=== PATIENT | female | born 1960 | race African-American/Black ===

== ENCOUNTER 2016-07-23 16:47 | Inpatient (IN) | payer MEDICARE, MEDICAID ==
[~2016-07-23] VITALS: Ht 170.2 cm; Wt 58.3 kg
[~2016-07-23 16:47] MED LIST: ADV250 IH; ALBU8HFA4 IH; ALEN70TA48 PO; AMLO-512 PO; RISP2 PO
[2016-07-23] MEDS ORDERED: LORazepam 2 MG/ML VIAL IM ONE (18:45)
[2016-07-23] MEDS ORDERED: HALOPERIDOL LACTATE 5 MG/ML VIAL IM ONE (18:45)
[2016-07-23] MEDS ORDERED: DiphenhydrAMINE HCL 50 MG/ML VIAL IM ONE (18:45)
[2016-07-23 18:55] VITALS: BP 137/99
[2016-07-23] MEDS ORDERED: PNEUMOCOCCAL VACCINE POLYVALENT 0.5 ML VIAL [PPSV23] IM ONE (19:15)
[2016-07-23 19:27] VITALS: BP 112/75
[2016-07-23] MEDS: FLUTICASONE/SALMETEROL 250 MCG-50 MCG/INH DISKUS INHALER [28] IH SCH (21:00)
[2016-07-24] MEDS: LORazepam 2 MG TABLET PO PRN ×4 (04:09→19:29)
[2016-07-24] MEDS: HALOPERIDOL 5 MG TABLET PO PRN ×4 (04:09→20:18)
[2016-07-24] MEDS: ALBUTEROL SULFATE HFA 90 MCG/PUFF 8 GM INHALER IH PRN (04:25)
[2016-07-24 06:54] VITALS: BP 130/86
[2016-07-24 08:14] VITALS: BP 90/52
[2016-07-24 08:30] LABS: BASOPHILS # (AUTO) 0.05 K/uL (0.00-0.20); BASOPHILS % (AUTO) 0.6 % (0.0-2.0); EOSINOPHILS # (AUTO) 0.22 K/uL (0.00-0.70); EOSINOPHILS % (AUTO) 2.74 % (1.0-6.0); HEMATOCRIT 36.3 % (36-46); HEMOGLOBIN 12.1 g/dL (12.0-16.0); LYMPHOCYTES # (AUTO) 2.4 K/uL (1.0-4.8); LYMPHOCYTES % (AUTO) 30.2 % (22.0-44.0); MEAN CORPUSCULAR HEMOGLOBIN 33.3 pg (26.0-34.0); MEAN CORPUSCULAR HGB CONC 33.5 G/dL (31.0-37.0); MEAN CORPUSCULAR VOLUME 100 fL (80-100); MONOCYTES # (AUTO) 0.9 K/uL (0.1-1.0); NEUTROPHILS # (AUTO) 4.3 K/uL (1.8-7.7); NEUTROPHILS % (AUTO) 54.5 % (40.0-70.0); PLATELET COUNT (AUTO) 395 K/uL (150-450); RED BLOOD CELL COUNT(AUTO) 3.64 MIL/uL (4.00-5.20); RED CELL DISTRIBUTION WIDTH 14.5 % (11.5-14.5); WHITE BLOOD COUNT (AUTO) 7.9 K/uL (4.5-11.0)
[2016-07-24] MEDS: AmLODIPine BESYLATE 10 MG TABLET PO SCH (09:00)
[2016-07-24 09:18] LABS: HEMOGLOBIN A1C 6.2 % (4.5-6.2)
[2016-07-24] MEDS: FLUTICASONE/SALMETEROL 250 MCG-50 MCG/INH DISKUS INHALER [28] IH SCH ×2 (09:34→20:17)
[2016-07-24 10:09] LABS: ALANINE AMINOTRANSFERASE 19 U/L (12-78); ALBUMIN 3.4 g/dL (3.4-5.0); ANION GAP 10 mmol/L (8-16); ASPARTATE AMINOTRANSFERASE 30 U/L (15-37); BILIRUBIN,TOTAL 0.3 mg/dL (0.1-1.0); CALCIUM, TOTAL 9.4 mg/dL (8.8-10.5); CARBON DIOXIDE 26 mmol/L (22-29); CHLORIDE 109 mmol/L (98-107); CHOL/HDL RATIO 2.4 (3.9-5.7); CREATININE 0.82 mg/dL (0.60-1.30); GLOMERULAR FILTR. RATE CALC > 60 mL/min (>60); POTASSIUM 4.9 mmol/L (3.5-5.1); SODIUM SERUM 145 mmol/L (136-145); THYROID STIMULATING HORMONE 0.81 uIU/mL (0.36-3.74); TOTAL PROTEIN, SERUM 6.4 g/dL (6.4-8.2); UREA NITROGEN, BLOOD 17 mg/dL (7-18)
[2016-07-24] MEDS: NICOTINE 21 MG/24 HOUR PATCH TD SCH (13:00)
[2016-07-24] MEDS ORDERED: DiphenhydrAMINE HCL 50 MG/ML VIAL ONE (15:05)
[2016-07-24] MEDS ORDERED: LORazepam 2 MG/ML VIAL ONE (15:05)
[2016-07-24] MEDS ORDERED: HALOPERIDOL LACTATE 5 MG/ML VIAL ONE (15:05)
[2016-07-24 16:01] VITALS: BP 107/65
[2016-07-24] MEDS ORDERED: ACETAMINOPHEN 325 MG TABLET PO PRN ×2 (17:30→20:45)
[2016-07-24] MEDS: DiphenhydrAMINE HCL 25 MG CAPSULE PO SCH (20:17)
[2016-07-24] MEDS: LamoTRIgine 100 MG TABLET PO SCH (20:17)
[2016-07-24] MEDS: OLANZapine 5 MG TABLET PO SCH (20:18)
[2016-07-24] MEDS ORDERED: ALBUTEROL SULFATE HFA 90 MCG/PUFF 8 GM INHALER IH PRN (20:45)
[2016-07-25 00:02] VITALS: BP 113/68
[2016-07-25] MEDS: ZOLPIDEM TARTRATE 10 MG TABLET PO PRN (00:06)
[2016-07-25 04:10] VITALS: BP 119/72
[2016-07-25] MEDS: HALOPERIDOL 5 MG TABLET PO PRN ×3 (04:16→16:30)
[2016-07-25] MEDS: ALBUTEROL SULFATE HFA 90 MCG/PUFF 8 GM INHALER IH PRN (04:16)
[2016-07-25] MEDS: LORazepam 2 MG TABLET PO PRN ×4 (04:16→21:03)
[2016-07-25 05:30] VITALS: BP 112/86
[2016-07-25] MEDS: IBUPROFEN 400 MG TABLET PO PRN ×2 (05:44→15:07)
[2016-07-25] MEDS ORDERED: ALENDRONATE SODIUM 70 MG TABLET PO SCH ×2 (06:30)
[2016-07-25] MEDS ORDERED: TraMADol HCL 50 MG TABLET PO ONE (06:45)
[2016-07-25] MEDS ORDERED: FLUTICASONE/VILANTEROL 200-25 MCG/INH INHALER [14] IH SCH (09:00)
[2016-07-25] MEDS ORDERED: AmLODIPine BESYLATE 10 MG TABLET PO SCH (09:00)
[2016-07-25] MEDS: AmLODIPine BESYLATE 10 MG TABLET PO SCH (09:00)
[2016-07-25] MEDS: FLUTICASONE/SALMETEROL 250 MCG-50 MCG/INH DISKUS INHALER [28] IH SCH ×2 (09:09→20:26)
[2016-07-25] MEDS: NICOTINE 21 MG/24 HOUR PATCH TD SCH (09:11)
[2016-07-25] MEDS: LEVOTHYROXINE SODIUM 50 MCG TABLET PO SCH (09:18)
[2016-07-25] MEDS ORDERED: HALOPERIDOL LACTATE 5 MG/ML VIAL ONE (10:02)
[2016-07-25] MEDS ORDERED: DiphenhydrAMINE HCL 50 MG/ML VIAL ONE (10:02)
[2016-07-25] MEDS ORDERED: LORazepam 2 MG/ML VIAL ONE (10:02)
[2016-07-25] MEDS ORDERED: HALOPERIDOL LACTATE 5 MG/ML VIAL IM ONE ×2 (10:15→10:30)
[2016-07-25] MEDS ORDERED: LORazepam 2 MG/ML VIAL IM ONE (10:15)
[2016-07-25] MEDS ORDERED: DiphenhydrAMINE HCL 50 MG/ML VIAL IM ONE (10:15)
[2016-07-25 16:12] VITALS: BP 120/83
[2016-07-25] MEDS: DiphenhydrAMINE HCL 25 MG CAPSULE PO SCH (20:26)
[2016-07-25] MEDS: OLANZapine 5 MG TABLET PO SCH (20:26)
[2016-07-25] MEDS: LamoTRIgine 100 MG TABLET PO SCH (20:26)
[2016-07-26 04:11] VITALS: BP 109/80
[2016-07-26] MEDS: HALOPERIDOL 5 MG TABLET PO PRN ×4 (04:11→17:37)
[2016-07-26] MEDS: LORazepam 2 MG TABLET PO PRN ×4 (04:11→17:36)
[2016-07-26] MEDS: IBUPROFEN 400 MG TABLET PO PRN ×2 (04:12→12:25)
[2016-07-26] MEDS: LEVOTHYROXINE SODIUM 50 MCG TABLET PO SCH (06:10)
[2016-07-26 07:47] LABS: EOSINOPHILS % (AUTO) 3.1 % (1.0-6.0); HEMATOCRIT 37.4 % (36-46); HEMOGLOBIN 12.1 g/dL (12.0-16.0); LYMPHOCYTES % (AUTO) 25.8 % (22.0-44.0); MEAN CORPUSCULAR HEMOGLOBIN 32.5 pg (26.0-34.0); MEAN CORPUSCULAR HGB CONC 32.4 G/dL (31.0-37.0); MEAN CORPUSCULAR VOLUME 101 fL (80-100); MONOCYTES # (AUTO) 0.8 K/uL (0.1-1.0); MONOCYTES % (AUTO) 10.1 % (2.0-9.0); NEUTROPHILS # (AUTO) 4.6 K/uL (1.8-7.7); PLATELET COUNT (AUTO) 416 K/uL (150-450); RED BLOOD CELL COUNT(AUTO) 3.72 MIL/uL (4.00-5.20); RED CELL DISTRIBUTION WIDTH 14.5 % (11.5-14.5); WHITE BLOOD COUNT (AUTO) 7.7 K/uL (4.5-11.0)
[2016-07-26 08:23] LABS: ALANINE AMINOTRANSFERASE 19 U/L (12-78); ALBUMIN 3.6 g/dL (3.4-5.0); ANION GAP 9 mmol/L (8-16); ASPARTATE AMINOTRANSFERASE 14 U/L (15-37); BILIRUBIN,TOTAL 0.2 mg/dL (0.1-1.0); CALCIUM, TOTAL 9.4 mg/dL (8.8-10.5); CARBON DIOXIDE 26 mmol/L (22-29); CHLORIDE 106 mmol/L (98-107); CHOL/HDL RATIO 2.6 (3.9-5.7); CREATININE 0.77 mg/dL (0.60-1.30); GLOMERULAR FILTR. RATE CALC > 60 mL/min (>60); SODIUM SERUM 141 mmol/L (136-145); THYROID STIMULATING HORMONE 2.39 uIU/mL (0.36-3.74); TOTAL PROTEIN, SERUM 6.8 g/dL (6.4-8.2); UREA NITROGEN, BLOOD 16 mg/dL (7-18)
[2016-07-26 08:33] LABS: HEMOGLOBIN A1C 5.7 % (4.5-6.2)
[2016-07-26] MEDS: NICOTINE 21 MG/24 HOUR PATCH TD SCH (09:12)
[2016-07-26] MEDS: FLUTICASONE/SALMETEROL 250 MCG-50 MCG/INH DISKUS INHALER [28] IH SCH ×2 (09:13→20:10)
[2016-07-26] MEDS: AmLODIPine BESYLATE 10 MG TABLET PO SCH (09:16)
[2016-07-26] MEDS ORDERED: MAG HYDROX/AL HYDROX/SIMETH 30 ML SUSP UDCUP PO PRN (09:30)
[2016-07-26 11:07] LABS: RBC MORPHOLOGY COMMENT ABNORMAL RBC MORPH
[2016-07-26 16:06] VITALS: BP 104/69
[2016-07-26 18:47] VITALS: BP 108/72
[2016-07-26] MEDS: DiphenhydrAMINE HCL 25 MG CAPSULE PO SCH (20:09)
[2016-07-26] MEDS: LamoTRIgine 100 MG TABLET PO SCH (20:09)
[2016-07-26] MEDS: OLANZapine 5 MG TABLET PO SCH (20:10)
[2016-07-27] MEDS: LORazepam 2 MG TABLET PO PRN ×4 (04:16→20:23)
[2016-07-27] MEDS: HALOPERIDOL 5 MG TABLET PO PRN ×4 (04:16→20:23)
[2016-07-27 04:22] VITALS: BP 127/84
[2016-07-27] MEDS: IBUPROFEN 400 MG TABLET PO PRN ×2 (04:49→13:30)
[2016-07-27] MEDS: LEVOTHYROXINE SODIUM 50 MCG TABLET PO SCH (07:17)
[2016-07-27] MEDS: NICOTINE 21 MG/24 HOUR PATCH TD SCH (09:11)
[2016-07-27] MEDS: FLUTICASONE/SALMETEROL 250 MCG-50 MCG/INH DISKUS INHALER [28] IH SCH ×2 (09:11→20:24)
[2016-07-27] MEDS: AmLODIPine BESYLATE 10 MG TABLET PO SCH (09:13)
[2016-07-27 13:31] VITALS: BP 107/87
[2016-07-27 16:00] VITALS: BP 121/94
[2016-07-27] MEDS: OLANZapine 5 MG TABLET PO SCH (20:24)
[2016-07-27] MEDS: DiphenhydrAMINE HCL 25 MG CAPSULE PO SCH (20:24)
[2016-07-27] MEDS: LamoTRIgine 100 MG TABLET PO SCH (20:24)
[2016-07-28] MEDS: ZOLPIDEM TARTRATE 10 MG TABLET PO PRN (03:03)
[2016-07-28] MEDS: LEVOTHYROXINE SODIUM 50 MCG TABLET PO SCH (06:34)
[2016-07-28 07:08] VITALS: BP 125/98
[2016-07-28] MEDS: LORazepam 2 MG TABLET PO PRN ×4 (07:08→21:20)
[2016-07-28] MEDS: HALOPERIDOL 5 MG TABLET PO PRN ×3 (07:09→16:36)
[2016-07-28 08:17] VITALS: BP 117/60
[2016-07-28] MEDS: AmLODIPine BESYLATE 10 MG TABLET PO SCH (08:47)
[2016-07-28] MEDS: NICOTINE 21 MG/24 HOUR PATCH TD SCH (08:47)
[2016-07-28] MEDS: FLUTICASONE/SALMETEROL 250 MCG-50 MCG/INH DISKUS INHALER [28] IH SCH ×2 (08:47→21:18)
[2016-07-28 09:53] VITALS: BP 114/74
[2016-07-28] MEDS: IBUPROFEN 400 MG TABLET PO PRN (09:55)
[2016-07-28 16:23] VITALS: BP 109/78
[2016-07-28] MEDS: LamoTRIgine 100 MG TABLET PO SCH (21:19)
[2016-07-28] MEDS: DiphenhydrAMINE HCL 25 MG CAPSULE PO SCH (21:19)
[2016-07-28] MEDS: OLANZapine 5 MG TABLET PO SCH (21:20)
[2016-07-29 02:01] VITALS: BP 100/72
[2016-07-29] MEDS: ZOLPIDEM TARTRATE 10 MG TABLET PO PRN (02:01)
[2016-07-29] MEDS: HALOPERIDOL 5 MG TABLET PO PRN ×3 (02:01→11:39)
[2016-07-29] MEDS: LEVOTHYROXINE SODIUM 50 MCG TABLET PO SCH (06:28)
[2016-07-29] MEDS: LORazepam 2 MG TABLET PO PRN ×2 (07:20→11:39)
[2016-07-29 07:57] VITALS: BP 100/61
[2016-07-29] MEDS: FLUTICASONE/SALMETEROL 250 MCG-50 MCG/INH DISKUS INHALER [28] IH SCH (08:30)
[2016-07-29] MEDS: AmLODIPine BESYLATE 10 MG TABLET PO SCH (08:30)
[2016-07-29] MEDS: NICOTINE 21 MG/24 HOUR PATCH TD SCH (08:30)
[2016-07-29] MEDS ORDERED: LAMO100 PO (11:32)
[2016-07-29] MEDS ORDERED: DIPH50 PO (11:32)
[2016-07-29] MEDS ORDERED: OLAN10TA3 PO (11:32)
[2016-07-29] MEDS ORDERED: LEVO50 PO (11:32)
== END 2016-07-29 13:20 | disposition home or self-care (01) | DRG 885 ==
LOC: B3A 18:47
PROC: 3E0234Z Introduction of Serum, Toxoid and Vaccine into Muscle, Percutaneous Approach (ICD-10-PCS; principal; 2016-07-23)
DX: F31.13 Bipolar disorder, current episode manic without psychotic features, severe (principal); J44.9 Chronic obstructive pulmonary disease, unspecified; K21.9 Gastro-esophageal reflux disease without esophagitis; I10 Essential (primary) hypertension; J45.909 Unspecified asthma, uncomplicated; E03.9 Hypothyroidism, unspecified; Z53.29 Procedure and treatment not carried out because of patient's decision for other reasons; M19.90 Unspecified osteoarthritis, unspecified site; F17.210 Nicotine dependence, cigarettes, uncomplicated; M47.9 Spondylosis, unspecified; E55.9 Vitamin D deficiency, unspecified; Z79.899 Other long term (current) drug therapy; Z28.21 Immunization not carried out because of patient refusal
CPT/HCPCS: 82652; 83036; 84439; 84443; 87081; J1200; J1630; J2060; J3535